=== PATIENT | male | born 1945 | race Caucasian/White ===

== ENCOUNTER → 2017-10-27 | Outpatient (CLI) | payer MEDICARE ==
[~2017-10-27] MED LIST: REGADENOSON 0.4 MG/5 ML SYRINGE ONE
== END | disposition home or self-care (01) ==
LOC: CFH 06:57
PROVIDERS: ATTEND Internal Medicine Cardiovascular Disease
DX: I35.8 Other nonrheumatic aortic valve disorders (principal); I37.1 Nonrheumatic pulmonary valve insufficiency; R94.31 Abnormal electrocardiogram [ECG] [EKG]; E11.9 Type 2 diabetes mellitus without complications
CPT/HCPCS: 0399T; 78452; 93017; 93306; A9502; J2785

== ENCOUNTER 2017-11-07 18:20 | Inpatient (IN) | payer MEDICARE ==
[~2017-11-07] VITALS: Ht 175.3 cm; Wt 92.6 kg
[2017-11-07] MEDS ORDERED: losartan (19:05)
[2017-11-07] MEDS ORDERED: metformin (19:05)
[2017-11-07 19:28] LABS: INTERNATIONAL NORMALIZED RATIO 0.97 (0.93-1.1); PROTHROMBIN TIME 10.1 Seconds (9.6-11.5)
[2017-11-07] MEDS ORDERED: SODIUM CHLORIDE FLUSH 10ML SYR IVF ONE (19:30)
[2017-11-07 19:31] LABS: ALBUMIN 4.1 g/dL (3.4-5.0); ANION GAP 11 mmol/L (5-15); CALCIUM 8.9 mg/dL (8.5-10.1); CHLORIDE 108 mmol/L (98-107); CREATININE 1.14 mg/dL (0.7-1.3)
[2017-11-07 20:20] LABS: MEAN CORPUSCULAR HGB CONC 35.1 g/dL (33.2-36.2); MEAN PLATELET VOLUME 10.4 fL (7.4-10.4); PLATELET COUNT 99 x10^3/uL (130-400); RED BLOOD COUNT 4.36 x10^6/uL (4.38-5.82); RED CELL DISTRIBUTION WIDTH 12.8 % (9.4-14.8)
[2017-11-07] MEDS ORDERED: GADOBUTROL 7.5 MMOL/7.5 ML PFS ONE (20:28)
[2017-11-07 20:29] LABS: BASOPHILS # (AUTO) 0.02 x10^3/uL (0-0.1); BASOPHILS % (AUTO) 0 % (0-1); EOSINOPHILS # (AUTO) 0.23 x10^3/uL (0-0.4); EOSINOPHILS % (AUTO) 4 % (1-7); LYMPHOCYTES # (AUTO) 1.14 x10^3/uL (1-3.4); LYMPHOCYTES % (AUTO) 18 % (22-44); MD SCAN; MONOCYTES # (AUTO) 0.51 x10^3/uL (0.2-0.8); MONOCYTES % (AUTO) 8 % (2-9); NEUTROPHILS # (AUTO) 4.44 x10^3/uL (1.8-6.8); NEUTROPHILS % (AUTO) 70 % (42-75)
[2017-11-07] MEDS ORDERED: ONDANSETRON ODT 4 MG PO PRN (22:00)
[2017-11-07] MEDS ORDERED: ENALAPRILAT 1.25 MG/ML, 2ML IVPush PRN (22:00)
[2017-11-07] MEDS ORDERED: ACETAMINOPHEN 325 MG TABLET PO PRN (22:00)
[2017-11-07] MEDS: BUTALB/APAP/CAFFEINE 50MG/325MG/40MG PO PRN (22:46)
[2017-11-07 22:51] VITALS: BP 128/76
[2017-11-08] MEDS: TRAZODONE 50MG TABLET PO PRN ×2 (00:24→20:40)
[2017-11-08 02:59] VITALS: BP 102/63
[2017-11-08] MEDS: BUTALB/APAP/CAFFEINE 50MG/325MG/40MG PO PRN ×4 (04:14→20:40)
[2017-11-08] MEDS: INSULIN LISPRO 100 UNITS/ML, PEN SQ-INSULIN SCH ×4 (07:00→20:40)
[2017-11-08 08:21] VITALS: BP 137/77
[2017-11-08 13:27] VITALS: BP 130/81
[2017-11-08 20:00] VITALS: BP 111/71
[2017-11-08 21:37] LABS: INTERNATIONAL NORMALIZED RATIO 0.96 (0.93-1.1)
[2017-11-09 04:30] VITALS: BP 132/82
[2017-11-09] MEDS: BUTALB/APAP/CAFFEINE 50MG/325MG/40MG PO PRN ×2 (05:13→09:21)
[2017-11-09 05:35] VITALS: BP 147/91
[2017-11-09 07:08] VITALS: BP 124/78
[2017-11-09] MEDS: INSULIN LISPRO 100 UNITS/ML, PEN SQ-INSULIN SCH ×4 (08:00→20:43)
[2017-11-09] MEDS ORDERED: GADOBUTROL 10 MMOL/10 ML PFS ONE (11:55)
[2017-11-09] MEDS ORDERED: THROMBIN 20,000 UNIT VIAL TP ONE ×2 (12:11→14:28)
[2017-11-09] MEDS ORDERED: BACITRACIN OINT 500U/GM, 15 GM ONE (12:11)
[2017-11-09] MEDS ORDERED: BUPIVACAINE/PF-EPI 0.5% 1:200K ONE (12:11)
[2017-11-09] MEDS ORDERED: BACITRACIN 50,000 UNIT ONE (12:11)
[2017-11-09] MEDS ORDERED: MIDAZOLAM 1 MG/ML, 2ML ONE (12:23)
[2017-11-09] MEDS ORDERED: FENTANYL PF 250 MCG/5ML ONE ×2 (12:23→14:18)
[2017-11-09] MEDS ORDERED: MANNITOL PMX 20% 500 ML ONE (13:28)
[2017-11-09] MEDS ORDERED: LABETALOL 5MG/ML, 20ML IV PRN (14:00)
[2017-11-09] MEDS ORDERED: HYDROmorphone 1 MG/ML, 1ML IV PRN (14:00)
[2017-11-09] MEDS ORDERED: hydrALAzine 20 MG/ML, 1ML IV PRN ×2 (14:00→17:30)
[2017-11-09] MEDS ORDERED: ACETAMINOPHEN 325 MG TABLET PO PRN (14:00)
[2017-11-09] MEDS ORDERED: FENTANYL PF 100 MCG/2ML IV PRN (14:00)
[2017-11-09] MEDS ORDERED: MEPERIDINE/PF 25MG/0.5ML IVPush PRN (14:00)
[2017-11-09] MEDS ORDERED: LORazepam 2 MG/ML, 1ML IVPush PRN (14:00)
[2017-11-09] MEDS ORDERED: OXYcodone 5 MG/5 ML ORAL.SOL UDC PO PRN ×2 (14:00→17:30)
[2017-11-09] MEDS ORDERED: ALBUTEROL SULFATE 2.5 MG/3 ML NPPB PRN (14:00)
[2017-11-09] MEDS ORDERED: BUPIVACAINE/PF-EPI 0.5% 1:200K INFIL ONE (14:27)
[2017-11-09] MEDS ORDERED: BACITRACIN 50,000 UNIT IRRIG ONE (14:29)
[2017-11-09] MEDS ORDERED: PROPOFOL 10 MG/ML, 20ML ONE (14:42)
[2017-11-09] MEDS ORDERED: ROCURONIUM 10MG/ML,5ML ONE (14:42)
[2017-11-09] MEDS ORDERED: NEOSTIGMINE 1 MG/ML, 10ML ONE (14:42)
[2017-11-09] MEDS ORDERED: ONDANSETRON 2MG/ML, 2ML ONE (14:42)
[2017-11-09] MEDS ORDERED: CEFAZOLIN 1,000 MG ONE (14:42)
[2017-11-09] MEDS ORDERED: GLYCOPYRROLATE 0.2MG/1ML, 5ML ONE (14:42)
[2017-11-09] MEDS ORDERED: DEXAMETHASONE 4 MG/ML, 5ML ONE (14:42)
[2017-11-09] MEDS ORDERED: EPHEDRINE 50 MG/ML, 1ML ONE (14:42)
[2017-11-09] MEDS ORDERED: CEFAZOLIN 1,000 MG IV SCH (16:30)
[2017-11-09] MEDS ORDERED: LABETALOL 5MG/ML, 20ML ONE (16:38)
[2017-11-09] MEDS ORDERED: OXYcodone 5 MG/5 ML ORAL.SOL UDC ONE (16:49)
[2017-11-09] MEDS ORDERED: hydrALAzine 20 MG/ML, 1ML ONE (16:49)
[2017-11-09] MEDS ORDERED: FENTANYL PF 100 MCG/2ML ONE (16:49)
[2017-11-09] MEDS: FENTANYL PF 100 MCG/2ML IV PRN ×2 (16:50→17:20)
[2017-11-09] MEDS: MORPHINE SULFATE 4 MG/ML, 1ML IV PRN (17:42)
[2017-11-09] MEDS ORDERED: HYDROmorphone 1 MG/ML, 1ML IM PRN (18:30)
[2017-11-09] MEDS ORDERED: HYDROmorphone 2 MG/ML, 1ML ONE (18:31)
[2017-11-09] MEDS: HYDROmorphone 2 MG/ML, 1ML IVPush PRN ×4 (18:34→22:24)
[2017-11-09] MEDS: CEFAZOLIN PMX 1GM/50ML 50 ML IV SCH (20:34)
[2017-11-09] MEDS ORDERED: BISACODYL 10 MG SUPP PR PRN (22:00)
[2017-11-09] MEDS ORDERED: POLYETHYLENE GLYCOL 17 GM PACKET PO PRN (22:00)
[2017-11-09] MEDS ORDERED: DOCUSATE 100 MG CAPSULE PO PRN (22:00)
[2017-11-10] MEDS: HYDROmorphone 2 MG/ML, 1ML IVPush PRN ×6 (00:01→16:49)
[2017-11-10] MEDS: ONDANSETRON ODT 4 MG PO PRN ×2 (03:58→11:48)
[2017-11-10 04:16] LABS: BASOPHILS # (AUTO) 0.01 x10^3/uL (0-0.1); BASOPHILS % (AUTO) 0 % (0-1); EOSINOPHILS % (AUTO) 0 % (1-7); LYMPHOCYTES # (AUTO) 0.63 x10^3/uL (1-3.4); LYMPHOCYTES % (AUTO) 5 % (22-44); MD NO; MEAN CORPUSCULAR HEMOGLOBIN 33.2 pg (27.5-34.5); MEAN CORPUSCULAR HGB CONC 34.3 g/dL (33.2-36.2); MEAN CORPUSCULAR VOLUME 97.1 fL (81-97); MEAN PLATELET VOLUME 9.3 fL (7.4-10.4); MONOCYTES # (AUTO) 1.01 x10^3/uL (0.2-0.8); MONOCYTES % (AUTO) 8 % (2-9); NEUTROPHILS # (AUTO) 10.78 x10^3/uL (1.8-6.8); NEUTROPHILS % (AUTO) 87 % (42-75); PLATELET COUNT 101 x10^3/uL (130-400); RED BLOOD COUNT 3.94 x10^6/uL (4.38-5.82); RED CELL DISTRIBUTION WIDTH 12.5 % (9.4-14.8)
[2017-11-10 04:21] LABS: ANION GAP 9 mmol/L (5-15); CALCIUM 8.3 mg/dL (8.5-10.1); CHLORIDE 104 mmol/L (98-107); CREATININE 1.01 mg/dL (0.7-1.3)
[2017-11-10] MEDS: CEFAZOLIN PMX 1GM/50ML 50 ML IV SCH ×3 (04:52→21:10)
[2017-11-10] MEDS: PROMETHAZINE 25 MG/ML, 1ML IM PRN ×3 (08:27→22:19)
[2017-11-10] MEDS: INSULIN LISPRO 100 UNITS/ML, PEN SQ-INSULIN SCH ×4 (08:40→21:11)
[2017-11-10] MEDS: OXYcodone/APAP 5/325MG TABLET PO PRN ×2 (21:43)
[2017-11-10] MEDS ORDERED: ACETAMINOPHEN 650 MG SUPP PR PRN (23:00)
[2017-11-10] MEDS ORDERED: ONDANSETRON 2MG/ML, 2ML IVPush PRN (23:30)
[2017-11-11] MEDS: CEFAZOLIN PMX 1GM/50ML 50 ML IV SCH (04:39)
[2017-11-11] MEDS: OXYcodone/APAP 5/325MG TABLET PO PRN ×2 (04:39→12:33)
[2017-11-11 04:45] LABS: MEAN CORPUSCULAR HEMOGLOBIN 33.9 pg (27.5-34.5); MEAN CORPUSCULAR HGB CONC 34.6 g/dL (33.2-36.2); MEAN CORPUSCULAR VOLUME 97.9 fL (81-97); RED BLOOD COUNT 3.66 x10^6/uL (4.38-5.82); RED CELL DISTRIBUTION WIDTH 12.6 % (9.4-14.8)
[2017-11-11 04:48] LABS: ANION GAP 9 mmol/L (5-15); CALCIUM 8.5 mg/dL (8.5-10.1); CHLORIDE 101 mmol/L (98-107); CREATININE 0.87 mg/dL (0.7-1.3)
[2017-11-11 05:02] LABS: BASOPHILS # (AUTO) 0.01 x10^3/uL (0-0.1); BASOPHILS % (AUTO) 0 % (0-1); EOSINOPHILS % (AUTO) 0 % (1-7); LYMPHOCYTES # (AUTO) 0.64 x10^3/uL (1-3.4); LYMPHOCYTES % (AUTO) 5 % (22-44); MD SCAN; MEAN PLATELET VOLUME 9.1 fL (7.4-10.4); MONOCYTES # (AUTO) 1.23 x10^3/uL (0.2-0.8); MONOCYTES % (AUTO) 10 % (2-9); NEUTROPHILS # (AUTO) 10.51 x10^3/uL (1.8-6.8); NEUTROPHILS % (AUTO) 85 % (42-75); PLATELET COUNT 111 x10^3/uL (130-400)
[2017-11-11] MEDS: INSULIN LISPRO 100 UNITS/ML, PEN SQ-INSULIN SCH ×4 (05:09→21:33)
[2017-11-11] MEDS: ONDANSETRON ODT 4 MG PO PRN (05:35)
[2017-11-11] MEDS: D5%-0.9% NACL+KCL 20MEQ 1,000 ML IV SCH ×2 (08:25→17:23)
[2017-11-11] MEDS: KETOROLAC 30 MG/1 ML IVPush SCH ×3 (08:25→21:26)
[2017-11-11] MEDS ORDERED: DIGOXIN 0.25 MG/ML, 2ML ONE (09:14)
[2017-11-11] MEDS ORDERED: AMIODARONE 150 MG in DEXTROSE 5% 100 ML IV ONE (09:30)
[2017-11-11] MEDS ORDERED: FILTER 0.22 MICRON IV ONE (09:30)
[2017-11-11] MEDS ORDERED: AMIODARONE 900 MG in DEXTROSE 5% 482 ML IV PRN (09:30)
[2017-11-11] MEDS ORDERED: DIGOXIN 0.25 MG/ML, 2ML IVPush ONE (09:30)
[2017-11-11] MEDS: BACITRACIN OINT 500U/GM, 15 GM TP SCH ×2 (18:01→21:25)
[2017-11-11] MEDS: MORPHINE SULFATE 4 MG/ML, 1ML IV PRN (19:55)
[2017-11-12] MEDS: BUTALB/APAP/CAFFEINE 50MG/325MG/40MG PO PRN ×5 (01:37→21:54)
[2017-11-12] MEDS: D5%-0.9% NACL+KCL 20MEQ 1,000 ML IV SCH (02:43)
[2017-11-12] MEDS: KETOROLAC 30 MG/1 ML IVPush SCH (02:43)
[2017-11-12 04:18] LABS: ALANINE AMINOTRANSFERASE 25 U/L (12-78); ALBUMIN 2.6 g/dL (3.4-5.0); ANION GAP 8 mmol/L (5-15); CALCIUM 7.8 mg/dL (8.5-10.1); CHLORIDE 109 mmol/L (98-107)
[2017-11-12 04:20] LABS: ALKALINE PHOSPHATASE 42 U/L (45-117); BILIRUBIN,TOTAL 0.6 mg/dL (0.2-1.0); TOTAL PROTEIN 5.7 g/dL (6.4-8.2)
[2017-11-12 04:39] LABS: BASOPHILS # (AUTO) 0.01 x10^3/uL (0-0.1); BASOPHILS % (AUTO) 0 % (0-1); EOSINOPHILS # (AUTO) 0.03 x10^3/uL (0-0.4); EOSINOPHILS % (AUTO) 0 % (1-7); LYMPHOCYTES # (AUTO) 0.53 x10^3/uL (1-3.4); LYMPHOCYTES % (AUTO) 7 % (22-44); MD SCAN; MEAN CORPUSCULAR HEMOGLOBIN 33.8 pg (27.5-34.5); MEAN CORPUSCULAR HGB CONC 34.2 g/dL (33.2-36.2); MEAN CORPUSCULAR VOLUME 98.8 fL (81-97); MONOCYTES # (AUTO) 0.56 x10^3/uL (0.2-0.8); MONOCYTES % (AUTO) 7 % (2-9); NEUTROPHILS # (AUTO) 6.47 x10^3/uL (1.8-6.8); NEUTROPHILS % (AUTO) 85 % (42-75); PLATELET COUNT 68 x10^3/uL (130-400); RED BLOOD COUNT 2.95 x10^6/uL (4.38-5.82); RED CELL DISTRIBUTION WIDTH 12.4 % (9.4-14.8)
[2017-11-12] MEDS ORDERED: SODIUM PHOSPHATE 20 MMOL in SODIUM CHLORIDE 0.9% 500 ML IV ONE (07:30)
[2017-11-12] MEDS: INSULIN LISPRO 100 UNITS/ML, PEN SQ-INSULIN SCH ×4 (08:08→20:11)
[2017-11-12] MEDS: SODIUM CHLORIDE 0.9% 1,000 ML IV SCH (08:10)
[2017-11-12] MEDS: BACITRACIN OINT 500U/GM, 15 GM TP SCH ×2 (09:24→20:11)
[2017-11-12] MEDS: DEXAMETHASONE 4 MG/ML, 1ML IVPush SCH ×3 (10:33→23:34)
[2017-11-12] MEDS: ONDANSETRON ODT 4 MG PO PRN (13:38)
[2017-11-12] MEDS ORDERED: ONDANSETRON ODT 4 MG PO PRN (14:00)
[2017-11-12] MEDS: metFORMIN 500 MG TABLET PO SCH (16:50)
[2017-11-12] MEDS: TRAZODONE 50MG TABLET PO PRN (20:11)
[2017-11-13] MEDS: SODIUM CHLORIDE 0.9% 1,000 ML IV SCH (04:30)
[2017-11-13] MEDS: DEXAMETHASONE 4 MG/ML, 1ML IVPush SCH ×4 (05:00→22:33)
[2017-11-13] MEDS: INSULIN LISPRO 100 UNITS/ML, PEN SQ-INSULIN SCH ×4 (06:52→20:38)
[2017-11-13] MEDS: BUTALB/APAP/CAFFEINE 50MG/325MG/40MG PO PRN ×2 (09:13→12:49)
[2017-11-13] MEDS: metFORMIN 500 MG TABLET PO SCH ×2 (09:13→16:24)
[2017-11-13] MEDS: AMIODARONE 200 MG TABLET PO SCH ×2 (09:16→20:26)
[2017-11-13] MEDS: BACITRACIN OINT 500U/GM, 15 GM TP SCH ×2 (09:16→20:26)
[2017-11-13] MEDS: MORPHINE SULFATE 4 MG/ML, 1ML IV PRN (14:08)
[2017-11-13 15:55] VITALS: BP 104/66
[2017-11-13 20:23] VITALS: BP 136/73
[2017-11-13] MEDS ORDERED: CIMETIDINE 200 MG TABLET PO ONE (21:30)
[2017-11-14] MEDS: OXYcodone/APAP 5/325MG TABLET PO PRN ×4 (00:37→20:43)
[2017-11-14] MEDS: TRAZODONE 50MG TABLET PO PRN ×2 (01:52→22:58)
[2017-11-14 02:00] VITALS: BP 128/75
[2017-11-14] MEDS: DEXAMETHASONE 4 MG/ML, 1ML IVPush SCH ×4 (04:29→22:50)
[2017-11-14 06:49] VITALS: BP 134/101
[2017-11-14] MEDS: INSULIN LISPRO 100 UNITS/ML, PEN SQ-INSULIN SCH ×4 (08:43→20:46)
[2017-11-14] MEDS: metFORMIN 500 MG TABLET PO SCH ×2 (08:44→17:13)
[2017-11-14] MEDS: BACITRACIN OINT 500U/GM, 15 GM TP SCH ×2 (08:44→20:46)
[2017-11-14] MEDS: AMIODARONE 200 MG TABLET PO SCH ×2 (08:44→20:44)
[2017-11-14] MEDS: BUTALB/APAP/CAFFEINE 50MG/325MG/40MG PO PRN (08:51)
[2017-11-14 12:45] VITALS: BP 121/70
[2017-11-14 18:49] VITALS: BP 125/71
[2017-11-14] MEDS ORDERED: DIPHENHYDRAMINE 50 MG CAPSULE PO ONE (22:00)
[2017-11-15 01:32] VITALS: BP 130/70
[2017-11-15] MEDS: OXYcodone/APAP 5/325MG TABLET PO PRN ×4 (01:40→20:26)
[2017-11-15] MEDS: DEXAMETHASONE 4 MG/ML, 1ML IVPush SCH ×2 (04:47→10:30)
[2017-11-15 05:12] LABS: BASOPHILS # (AUTO) 0.02 x10^3/uL (0-0.1); BASOPHILS % (AUTO) 0 % (0-1); EOSINOPHILS # (AUTO) 0.01 x10^3/uL (0-0.4); EOSINOPHILS % (AUTO) 0 % (1-7); LYMPHOCYTES # (AUTO) 0.78 x10^3/uL (1-3.4); LYMPHOCYTES % (AUTO) 10 % (22-44); MD NO; MEAN CORPUSCULAR HEMOGLOBIN 34.2 pg (27.5-34.5); MEAN CORPUSCULAR HGB CONC 34.9 g/dL (33.2-36.2); MEAN PLATELET VOLUME 9.2 fL (7.4-10.4); MONOCYTES # (AUTO) 0.49 x10^3/uL (0.2-0.8); MONOCYTES % (AUTO) 6 % (2-9); NEUTROPHILS % (AUTO) 83 % (42-75); PLATELET COUNT 116 x10^3/uL (130-400); RED BLOOD COUNT 2.91 x10^6/uL (4.38-5.82); RED CELL DISTRIBUTION WIDTH 12.5 % (9.4-14.8)
[2017-11-15 05:25] LABS: ANION GAP 10 mmol/L (5-15); CALCIUM 8.2 mg/dL (8.5-10.1); CHLORIDE 109 mmol/L (98-107); CREATININE 0.85 mg/dL (0.7-1.3)
[2017-11-15 07:38] VITALS: BP 135/77
[2017-11-15] MEDS: BACITRACIN OINT 500U/GM, 15 GM TP SCH ×2 (08:26→20:50)
[2017-11-15] MEDS: metFORMIN 500 MG TABLET PO SCH ×2 (08:26→16:33)
[2017-11-15] MEDS: AMIODARONE 200 MG TABLET PO SCH ×2 (08:26→20:50)
[2017-11-15] MEDS: INSULIN LISPRO 100 UNITS/ML, PEN SQ-INSULIN SCH ×4 (08:27→20:38)
[2017-11-15 13:28] VITALS: BP 108/66
[2017-11-15] MEDS: BUTALB/APAP/CAFFEINE 50MG/325MG/40MG PO PRN (16:33)
[2017-11-15 18:50] VITALS: BP 124/72
[2017-11-15] MEDS: TRAZODONE 50MG TABLET PO PRN (20:50)
[2017-11-16 01:30] VITALS: BP 103/54
[2017-11-16] MEDS: OXYcodone/APAP 5/325MG TABLET PO PRN ×3 (02:53→12:32)
[2017-11-16 06:58] VITALS: BP 126/74
[2017-11-16] MEDS: INSULIN LISPRO 100 UNITS/ML, PEN SQ-INSULIN SCH ×2 (07:00→11:00)
[2017-11-16] MEDS: metFORMIN 500 MG TABLET PO SCH (07:52)
[2017-11-16] MEDS: BACITRACIN OINT 500U/GM, 15 GM TP SCH (07:52)
[2017-11-16] MEDS: AMIODARONE 200 MG TABLET PO SCH (07:52)
[2017-11-16] MEDS ORDERED: OXYC-302 PO (13:29)
== END 2017-11-16 13:41 | disposition home health service (06) | DRG 25 ==
LOC: ED 21:17 → EDIP 21:18 → 4NOR 22:20 → CCU 11-09 17:27 → 5SO 11-13 11:06 → DCLOUNGE 11-16 13:27
PROVIDERS: ADMIT Internal Medicine; ATTEND Internal Medicine
PROC: 00U20KZ Supplement Dura Mater with Nonautologous Tissue Substitute, Open Approach (ICD-10-PCS; 2017-11-09)
PROC: [UNRECOGNIZED PROCEDURE] (2017-11-09)
PROC: 00C40ZZ Extirpation of Matter from Intracranial Subdural Space, Open Approach (ICD-10-PCS; principal; 2017-11-09 13:00)
DX: I62.00 Nontraumatic subdural hemorrhage, unspecified (principal); G93.41 Metabolic encephalopathy; I62.1 Nontraumatic extradural hemorrhage; D69.6 Thrombocytopenia, unspecified; E11.9 Type 2 diabetes mellitus without complications; F17.210 Nicotine dependence, cigarettes, uncomplicated; G44.52 New daily persistent headache (NDPH); I11.9 Hypertensive heart disease without heart failure; K57.30 Diverticulosis of large intestine without perforation or abscess without bleeding; I48.91 Unspecified atrial fibrillation; Z82.3 Family history of stroke; Z82.49 Family history of ischemic heart disease and other diseases of the circulatory system; Z83.3 Family history of diabetes mellitus
CPT/HCPCS: 36415; 70250; 70450; 70552; 70553; 71045; 80048; 80053; 82040; 82962; 83036; 83735; 84100; 85025; 85610; 85730; 86850; 86900; 87081; 88305; 88307; 93005; 99285; A9585; C1713; G0378; J0690; J1100; J1170; J1885; J2250; J2405; J2550; J2704; J2710; J3010; J3490; Q0162; C1781; J0282; J1160; J1815; J3480; J7030; J7040; J7060

== ENCOUNTER → 2017-11-07 | Outpatient (CLI) | payer MEDICARE ==
[~2017-11-07] MED LIST changes: +OXYC-302 PO; -REGADENOSON 0.4 MG/5 ML SYRINGE ONE; +losartan; +metformin
== END | disposition home or self-care (01) ==
LOC: RAD 17:42
PROVIDERS: ATTEND Nurse Practitioner Family
DX: R26.89 Other abnormalities of gait and mobility (principal); G44.89 Other headache syndrome; R41.3 Other amnesia
CPT/HCPCS: 70450

== ENCOUNTER 2017-11-22 11:02 | Inpatient (IN) | payer MEDICARE ==
[~2017-11-22] VITALS: Ht 175.3 cm; Wt 80.4 kg
[2017-11-22] MEDS ORDERED: MORPHINE SULFATE 4 MG/ML, 1ML IVPush PRN (11:30)
[2017-11-22] MEDS ORDERED: LOSA25TA6 PO (11:51)
[2017-11-22] MEDS ORDERED: METF500T17 PO (11:52)
[2017-11-22] MEDS ORDERED: FLUO40CA9 PO (11:53)
[2017-11-22 11:54] LABS: BASOPHILS # (AUTO) 0.02 x10^3/uL (0-0.1); BASOPHILS % (AUTO) 0 % (0-1); EOSINOPHILS % (AUTO) 2 % (1-7); LYMPHOCYTES # (AUTO) 0.96 x10^3/uL (1-3.4); LYMPHOCYTES % (AUTO) 11 % (22-44); MD NO; MEAN CORPUSCULAR HEMOGLOBIN 32.5 pg (27.5-34.5); MEAN CORPUSCULAR HGB CONC 33.7 g/dL (33.2-36.2); MEAN CORPUSCULAR VOLUME 96.5 fL (81-97); MEAN PLATELET VOLUME 8.1 fL (7.4-10.4); MONOCYTES # (AUTO) 0.52 x10^3/uL (0.2-0.8); MONOCYTES % (AUTO) 6 % (2-9); NEUTROPHILS # (AUTO) 6.67 x10^3/uL (1.8-6.8); NEUTROPHILS % (AUTO) 80 % (42-75); PLATELET COUNT 237 x10^3/uL (130-400); RED BLOOD COUNT 3.58 x10^6/uL (4.38-5.82); RED CELL DISTRIBUTION WIDTH 13.5 % (9.4-14.8)
[2017-11-22] MEDS ORDERED: OXYC-302 PO (11:54)
[2017-11-22 12:06] LABS: INTERNATIONAL NORMALIZED RATIO 0.97 (0.93-1.1)
[2017-11-22 12:07] LABS: ALBUMIN 3.3 g/dL (3.4-5.0); ANION GAP 7 mmol/L (5-15); CALCIUM 8.7 mg/dL (8.5-10.1); CHLORIDE 105 mmol/L (98-107)
[2017-11-22 12:11] LABS: ALANINE AMINOTRANSFERASE 40 U/L (12-78); ALKALINE PHOSPHATASE 66 U/L (45-117); BILIRUBIN,TOTAL 0.3 mg/dL (0.2-1.0); CREATININE 0.88 mg/dL (0.7-1.3)
[2017-11-22] MEDS ORDERED: ONDANSETRON ODT 4 MG ONE (12:30)
[2017-11-22] MEDS ORDERED: MORPHINE SULFATE 4 MG/ML, 1ML ONE ×2 (12:30→18:01)
[2017-11-22] MEDS ORDERED: ONDANSETRON 2MG/ML, 2ML IVPush ONE (12:30)
[2017-11-22] MEDS: MORPHINE SULFATE 4 MG/ML, 1ML IVPush PRN ×2 (12:35→13:45)
[2017-11-22] MEDS ORDERED: ONDANSETRON ODT 4 MG PO ONE (13:00)
[2017-11-22 14:44] VITALS: BP 123/75
[2017-11-22] MEDS ORDERED: INSTRUCTION SEE COMMENTS XX ONE (16:00)
[2017-11-22] MEDS ORDERED: ACETAMINOPHEN 325 MG TABLET PO PRN (16:00)
[2017-11-22] MEDS: SODIUM CHLORIDE 0.9% 1,000 ML IV SCH (16:28)
[2017-11-22] MEDS ORDERED: MORPHINE SULFATE 4 MG/ML, 1ML IVPush ONE (18:00)
[2017-11-22] MEDS: morphine SULFATE 10 MG/ML, 1ML IVPush PRN (19:45)
[2017-11-22 20:24] LABS: MICROSCOPIC NOT IND
[2017-11-22 20:33] LABS: CULTURE INDICATED? NO
[2017-11-22] MEDS: INSULIN LISPRO 100 UNITS/ML, PEN SQ-INSULIN SCH (20:57)
[2017-11-22] MEDS: OXYcodone/APAP 5/325MG TABLET PO PRN (22:52)
[2017-11-23] MEDS: morphine SULFATE 10 MG/ML, 1ML IVPush PRN ×2 (02:08→19:43)
[2017-11-23 04:10] VITALS: BP 137/74
[2017-11-23] MEDS: SODIUM CHLORIDE 0.9% 1,000 ML IV SCH ×3 (05:51→23:55)
[2017-11-23] MEDS: OXYcodone/APAP 5/325MG TABLET PO PRN ×4 (06:50→23:07)
[2017-11-23] MEDS: INSULIN LISPRO 100 UNITS/ML, PEN SQ-INSULIN SCH ×4 (07:00→20:46)
[2017-11-23] MEDS: MVI ADULT 10 ML, THIAMINE 200 MG, FOLIC ACID 1 MG in SODIUM CHLORIDE 0.45% 1,000 ML IV SCH (10:26)
[2017-11-23] MEDS ORDERED: FENTANYL PF 250 MCG/5ML ONE (15:35)
[2017-11-23] MEDS ORDERED: PROPOFOL 10 MG/ML, 20ML ONE (15:38)
[2017-11-23] MEDS ORDERED: ROCURONIUM 10MG/ML,5ML ONE (15:39)
[2017-11-23] MEDS ORDERED: SODIUM CHLORIDE 0.9% PF 10ML ONE (15:39)
[2017-11-23] MEDS ORDERED: CEFAZOLIN 1,000 MG ONE ×2 (15:39)
[2017-11-23] MEDS ORDERED: GLYCOPYRROLATE 0.4 MG/2 ML, 2ML ONE (15:41)
[2017-11-23] MEDS ORDERED: NEOSTIGMINE 1 MG/ML, 10ML ONE (15:41)
[2017-11-23] MEDS ORDERED: THROMBIN 5,000 UNIT VIAL TP ONE (16:26)
[2017-11-23] MEDS ORDERED: BUPIVACAINE/PF-EPI 0.5% 1:200K ONE (16:26)
[2017-11-23] MEDS ORDERED: BACITRACIN 50,000 UNIT ONE (16:26)
[2017-11-23] MEDS ORDERED: hydrALAzine 20 MG/ML, 1ML IV PRN (16:30)
[2017-11-23] MEDS ORDERED: MORPHINE SULFATE 4 MG/ML, 1ML IVPush PRN (16:30)
[2017-11-23] MEDS ORDERED: PROMETHAZINE 25 MG/ML, 1ML IV PRN (16:30)
[2017-11-23] MEDS ORDERED: OXYcodone 5 MG/5 ML ORAL.SOL UDC PO PRN (16:30)
[2017-11-23] MEDS ORDERED: ONDANSETRON 2MG/ML, 2ML IV PRN (16:30)
[2017-11-23] MEDS ORDERED: LABETALOL 5MG/ML, 20ML IV PRN (16:30)
[2017-11-23] MEDS ORDERED: HYDROmorphone 1 MG/ML, 1ML IV PRN (16:30)
[2017-11-23] MEDS ORDERED: ONDANSETRON ODT 8 MG PO PRN (16:30)
[2017-11-23] MEDS ORDERED: PROMETHAZINE 25 MG/ML, 1ML IM PRN ×2 (16:30)
[2017-11-23] MEDS ORDERED: MEPERIDINE/PF 25MG/0.5ML IVPush PRN (16:30)
[2017-11-23] MEDS ORDERED: ONDANSETRON 2MG/ML, 2ML ONE (16:55)
[2017-11-23] MEDS ORDERED: PHENYLEPHRINE 10 MG/ML ONE (17:01)
[2017-11-23] MEDS ORDERED: FENTANYL PF 100 MCG/2ML ONE (19:00)
[2017-11-23] MEDS: FENTANYL PF 100 MCG/2ML IV PRN ×2 (19:00→19:15)
[2017-11-23] MEDS ORDERED: hydrALAzine 20 MG/ML, 1ML ONE (19:04)
[2017-11-24] MEDS: CEFAZOLIN PMX 2GM/50ML 50 ML IVPB SCH ×3 (01:40→17:54)
[2017-11-24 04:14] VITALS: BP 109/62
[2017-11-24 05:01] LABS: BASOPHILS # (AUTO) 0.02 x10^3/uL (0-0.1); BASOPHILS % (AUTO) 0 % (0-1); EOSINOPHILS # (AUTO) 0.18 x10^3/uL (0-0.4); EOSINOPHILS % (AUTO) 2 % (1-7); LYMPHOCYTES # (AUTO) 1.12 x10^3/uL (1-3.4); LYMPHOCYTES % (AUTO) 12 % (22-44); MD NO; MEAN CORPUSCULAR HEMOGLOBIN 32.9 pg (27.5-34.5); MEAN CORPUSCULAR HGB CONC 33.7 g/dL (33.2-36.2); MEAN CORPUSCULAR VOLUME 97.7 fL (81-97); MEAN PLATELET VOLUME 8.1 fL (7.4-10.4); MONOCYTES # (AUTO) 0.65 x10^3/uL (0.2-0.8); MONOCYTES % (AUTO) 7 % (2-9); NEUTROPHILS # (AUTO) 7.07 x10^3/uL (1.8-6.8); NEUTROPHILS % (AUTO) 78 % (42-75); PLATELET COUNT 243 x10^3/uL (130-400); RED BLOOD COUNT 3.77 x10^6/uL (4.38-5.82); RED CELL DISTRIBUTION WIDTH 13.5 % (9.4-14.8)
[2017-11-24 05:03] LABS: ALANINE AMINOTRANSFERASE 35 U/L (12-78); ALBUMIN 3.3 g/dL (3.4-5.0); ANION GAP 6 mmol/L (5-15); CALCIUM 8.9 mg/dL (8.5-10.1); CHLORIDE 104 mmol/L (98-107); CREATININE 1.02 mg/dL (0.7-1.3)
[2017-11-24 05:06] LABS: ALKALINE PHOSPHATASE 71 U/L (45-117); BILIRUBIN,TOTAL 0.4 mg/dL (0.2-1.0)
[2017-11-24] MEDS: INSULIN LISPRO 100 UNITS/ML, PEN SQ-INSULIN SCH ×4 (08:34→21:39)
[2017-11-24] MEDS: OXYcodone/APAP 5/325MG TABLET PO PRN ×2 (08:40→12:41)
[2017-11-24] MEDS: MVI ADULT 10 ML, THIAMINE 200 MG, FOLIC ACID 1 MG in SODIUM CHLORIDE 0.45% 1,000 ML IV SCH (12:34)
[2017-11-25] MEDS: OXYcodone/APAP 5/325MG TABLET PO PRN ×4 (00:27→19:46)
[2017-11-25] MEDS: SODIUM CHLORIDE 0.9% 1,000 ML IV SCH ×2 (00:27→21:40)
[2017-11-25] MEDS: CEFAZOLIN PMX 2GM/50ML 50 ML IVPB SCH ×3 (02:01→17:36)
[2017-11-25 04:00] VITALS: BP 125/75
[2017-11-25 04:36] LABS: BASOPHILS # (AUTO) 0.01 x10^3/uL (0-0.1); BASOPHILS % (AUTO) 0 % (0-1); EOSINOPHILS # (AUTO) 0.05 x10^3/uL (0-0.4); EOSINOPHILS % (AUTO) 0 % (1-7); LYMPHOCYTES # (AUTO) 0.86 x10^3/uL (1-3.4); LYMPHOCYTES % (AUTO) 7 % (22-44); MD NO; MEAN CORPUSCULAR HEMOGLOBIN 33.2 pg (27.5-34.5); MEAN CORPUSCULAR HGB CONC 34.1 g/dL (33.2-36.2); MEAN CORPUSCULAR VOLUME 97.2 fL (81-97); MEAN PLATELET VOLUME 8.3 fL (7.4-10.4); MONOCYTES # (AUTO) 0.88 x10^3/uL (0.2-0.8); MONOCYTES % (AUTO) 7 % (2-9); NEUTROPHILS % (AUTO) 85 % (42-75); PLATELET COUNT 207 x10^3/uL (130-400); RED BLOOD COUNT 3.62 x10^6/uL (4.38-5.82); RED CELL DISTRIBUTION WIDTH 12.8 % (9.4-14.8)
[2017-11-25 04:46] LABS: ANION GAP 9 mmol/L (5-15); CALCIUM 8.8 mg/dL (8.5-10.1); CHLORIDE 106 mmol/L (98-107)
[2017-11-25 04:53] LABS: CREATININE 0.81 mg/dL (0.7-1.3)
[2017-11-25] MEDS: INSULIN LISPRO 100 UNITS/ML, PEN SQ-INSULIN SCH ×4 (07:00→21:41)
[2017-11-25] MEDS: MVI ADULT 10 ML, THIAMINE 200 MG, FOLIC ACID 1 MG in SODIUM CHLORIDE 0.45% 1,000 ML IV SCH (09:08)
[2017-11-26] MEDS: CEFAZOLIN PMX 2GM/50ML 50 ML IVPB SCH (01:27)
[2017-11-26] MEDS: SODIUM CHLORIDE 0.9% 1,000 ML IV SCH (02:19)
[2017-11-26 04:00] VITALS: BP 140/72
[2017-11-26 04:54] LABS: ANION GAP 7 mmol/L (5-15); CALCIUM 8.4 mg/dL (8.5-10.1); CHLORIDE 107 mmol/L (98-107)
[2017-11-26 04:56] LABS: CREATININE 0.85 mg/dL (0.7-1.3)
[2017-11-26 04:58] LABS: BASOPHILS # (AUTO) 0.02 x10^3/uL (0-0.1); BASOPHILS % (AUTO) 0 % (0-1); EOSINOPHILS % (AUTO) 3 % (1-7); LYMPHOCYTES # (AUTO) 0.92 x10^3/uL (1-3.4); LYMPHOCYTES % (AUTO) 12 % (22-44); MD NO; MEAN CORPUSCULAR HEMOGLOBIN 33.3 pg (27.5-34.5); MEAN CORPUSCULAR HGB CONC 34.1 g/dL (33.2-36.2); MEAN CORPUSCULAR VOLUME 97.7 fL (81-97); MEAN PLATELET VOLUME 8.4 fL (7.4-10.4); MONOCYTES # (AUTO) 0.59 x10^3/uL (0.2-0.8); MONOCYTES % (AUTO) 8 % (2-9); NEUTROPHILS # (AUTO) 5.91 x10^3/uL (1.8-6.8); NEUTROPHILS % (AUTO) 77 % (42-75); PLATELET COUNT 193 x10^3/uL (130-400); RED BLOOD COUNT 3.43 x10^6/uL (4.38-5.82); RED CELL DISTRIBUTION WIDTH 13.1 % (9.4-14.8)
[2017-11-26] MEDS: OXYcodone/APAP 5/325MG TABLET PO PRN ×4 (06:06→20:59)
[2017-11-26] MEDS: INSULIN LISPRO 100 UNITS/ML, PEN SQ-INSULIN SCH ×4 (07:00→21:09)
[2017-11-26] MEDS: MVI ADULT 10 ML, THIAMINE 200 MG, FOLIC ACID 1 MG in SODIUM CHLORIDE 0.45% 1,000 ML IV SCH (09:00)
[2017-11-26] MEDS ORDERED: BACITRACIN OINT 500U/GM, 15 GM TP ONE (09:00)
[2017-11-26] MEDS: DOCUSATE 100 MG CAPSULE PO SCH ×2 (09:12→20:59)
[2017-11-26 12:48] VITALS: BP 142/82
[2017-11-26 18:50] VITALS: BP 129/73
[2017-11-27] MEDS: OXYcodone/APAP 5/325MG TABLET PO PRN ×4 (03:00→19:48)
[2017-11-27 03:15] VITALS: BP 149/81
[2017-11-27] MEDS: INSULIN LISPRO 100 UNITS/ML, PEN SQ-INSULIN SCH ×4 (06:42→20:07)
[2017-11-27 07:31] VITALS: BP 125/80
[2017-11-27] MEDS: FOLIC ACID 1 MG TABLET PO SCH (09:34)
[2017-11-27] MEDS: DOCUSATE 100 MG CAPSULE PO SCH ×2 (09:34→19:48)
[2017-11-27] MEDS: THIAMINE 100MG TABLET PO SCH (09:34)
[2017-11-27 13:28] VITALS: BP 134/75
[2017-11-27 19:05] VITALS: BP 121/69
[2017-11-28 01:14] VITALS: BP 132/73
[2017-11-28] MEDS: OXYcodone/APAP 5/325MG TABLET PO PRN ×4 (04:55→20:08)
[2017-11-28 06:56] VITALS: BP 124/79
[2017-11-28] MEDS: INSULIN LISPRO 100 UNITS/ML, PEN SQ-INSULIN SCH ×4 (07:00→20:18)
[2017-11-28] MEDS: LOSARTAN 25MG TABLET PO SCH (08:40)
[2017-11-28] MEDS: DOCUSATE 100 MG CAPSULE PO SCH ×2 (08:40→20:08)
[2017-11-28] MEDS: THIAMINE 100MG TABLET PO SCH (08:41)
[2017-11-28] MEDS: FOLIC ACID 1 MG TABLET PO SCH (08:41)
[2017-11-28] MEDS ORDERED: MAGNESIUM CITRATE 300ML ORAL SOL PO ONE (10:00)
[2017-11-28 13:01] VITALS: BP 122/78
[2017-11-28 20:02] VITALS: BP 128/68
[2017-11-29] MEDS: OXYcodone/APAP 5/325MG TABLET PO PRN ×5 (00:26→21:44)
[2017-11-29 02:10] VITALS: BP 114/73
[2017-11-29] MEDS: INSULIN LISPRO 100 UNITS/ML, PEN SQ-INSULIN SCH ×4 (06:58→20:28)
[2017-11-29 07:11] VITALS: BP 137/77
[2017-11-29] MEDS: DOCUSATE 100 MG CAPSULE PO SCH ×2 (09:18→21:44)
[2017-11-29] MEDS: THIAMINE 100MG TABLET PO SCH (09:18)
[2017-11-29] MEDS: FOLIC ACID 1 MG TABLET PO SCH (09:19)
[2017-11-29] MEDS: LOSARTAN 25MG TABLET PO SCH (09:19)
[2017-11-29 12:54] VITALS: BP 119/74
[2017-11-29 19:20] VITALS: BP 122/71
[2017-11-30] MEDS: OXYcodone/APAP 5/325MG TABLET PO PRN ×5 (03:45→22:30)
[2017-11-30 04:17] VITALS: BP 149/87
[2017-11-30] MEDS: INSULIN LISPRO 100 UNITS/ML, PEN SQ-INSULIN SCH ×4 (07:00→21:00)
[2017-11-30 07:49] VITALS: BP 132/72
[2017-11-30] MEDS: THIAMINE 100MG TABLET PO SCH (08:09)
[2017-11-30] MEDS: LOSARTAN 25MG TABLET PO SCH (08:09)
[2017-11-30] MEDS: DOCUSATE 100 MG CAPSULE PO SCH ×2 (08:09→21:11)
[2017-11-30] MEDS: FOLIC ACID 1 MG TABLET PO SCH (08:18)
[2017-11-30 14:16] VITALS: BP 128/75
[2017-11-30 20:09] VITALS: BP 134/74
[2017-12-01 04:23] VITALS: BP 154/87
[2017-12-01] MEDS: OXYcodone/APAP 5/325MG TABLET PO PRN ×4 (05:02→21:09)
[2017-12-01] MEDS: INSULIN LISPRO 100 UNITS/ML, PEN SQ-INSULIN SCH ×4 (07:00→21:11)
[2017-12-01 08:25] VITALS: BP 155/98
[2017-12-01] MEDS: LOSARTAN 25MG TABLET PO SCH (08:27)
[2017-12-01] MEDS: DOCUSATE 100 MG CAPSULE PO SCH ×2 (08:27→21:09)
[2017-12-01] MEDS: FOLIC ACID 1 MG TABLET PO SCH (08:27)
[2017-12-01] MEDS: THIAMINE 100MG TABLET PO SCH (08:27)
[2017-12-01 11:27] VITALS: BP 134/82
[2017-12-01 15:59] VITALS: BP 139/91
[2017-12-01 18:33] VITALS: BP 116/76
[2017-12-02 04:07] VITALS: BP 122/84
[2017-12-02] MEDS: OXYcodone/APAP 5/325MG TABLET PO PRN ×4 (05:06→16:37)
[2017-12-02 05:18] LABS: ALBUMIN 3.5 g/dL (3.4-5.0); ANION GAP 5 mmol/L (5-15); CALCIUM 9.1 mg/dL (8.5-10.1); CHLORIDE 105 mmol/L (98-107)
[2017-12-02 05:19] LABS: BASOPHILS # (AUTO) 0.02 x10^3/uL (0-0.1); BASOPHILS % (AUTO) 0 % (0-1); EOSINOPHILS # (AUTO) 0.31 x10^3/uL (0-0.4); EOSINOPHILS % (AUTO) 5 % (1-7); LYMPHOCYTES # (AUTO) 1.41 x10^3/uL (1-3.4); LYMPHOCYTES % (AUTO) 24 % (22-44); MD NO; MEAN CORPUSCULAR HEMOGLOBIN 31.8 pg (27.5-34.5); MEAN CORPUSCULAR HGB CONC 33.5 g/dL (33.2-36.2); MEAN CORPUSCULAR VOLUME 94.9 fL (81-97); MEAN PLATELET VOLUME 8.5 fL (7.4-10.4); MONOCYTES # (AUTO) 0.48 x10^3/uL (0.2-0.8); MONOCYTES % (AUTO) 8 % (2-9); NEUTROPHILS # (AUTO) 3.63 x10^3/uL (1.8-6.8); NEUTROPHILS % (AUTO) 62 % (42-75); PLATELET COUNT 180 x10^3/uL (130-400); RED BLOOD COUNT 3.91 x10^6/uL (4.38-5.82)
[2017-12-02 05:21] LABS: ALANINE AMINOTRANSFERASE 31 U/L (12-78); ALKALINE PHOSPHATASE 83 U/L (45-117); BILIRUBIN,TOTAL 0.3 mg/dL (0.2-1.0); CREATININE 1.01 mg/dL (0.7-1.3); TOTAL PROTEIN 7.8 g/dL (6.4-8.2)
[2017-12-02 07:00] VITALS: BP 139/83
[2017-12-02] MEDS: INSULIN LISPRO 100 UNITS/ML, PEN SQ-INSULIN SCH ×3 (07:00→16:00)
[2017-12-02] MEDS: LOSARTAN 25MG TABLET PO SCH (08:37)
[2017-12-02] MEDS: DOCUSATE 100 MG CAPSULE PO SCH (08:37)
[2017-12-02] MEDS: THIAMINE 100MG TABLET PO SCH (08:38)
[2017-12-02] MEDS: FOLIC ACID 1 MG TABLET PO SCH (08:38)
[2017-12-02] MEDS ORDERED: THIA100T10 PO (10:10)
[2017-12-02 11:36] VITALS: BP 112/73
[2017-12-02 13:42] VITALS: BP 123/82
[2017-12-02 16:33] VITALS: BP 126/72
== END 2017-12-02 16:47 | DRG 25 ==
LOC: ED 13:16 → EDIP 13:30 → CCU 14:18 → 4NOR 11-26 12:40
PROVIDERS: ADMIT Hospitalist; ATTEND Hospitalist
PROC: 009400Z Drainage of Intracranial Subdural Space with Drainage Device, Open Approach (ICD-10-PCS; 2017-11-23)
PROC: 00C40ZZ Extirpation of Matter from Intracranial Subdural Space, Open Approach (ICD-10-PCS; principal; 2017-11-23 13:00)
DX: I62.02 Nontraumatic subacute subdural hemorrhage (principal); G93.6 Cerebral edema; D68.69 Other thrombophilia; R71.0 Precipitous drop in hematocrit; E11.9 Type 2 diabetes mellitus without complications; I48.91 Unspecified atrial fibrillation; I10 Essential (primary) hypertension; F12.10 Cannabis abuse, uncomplicated; Z83.3 Family history of diabetes mellitus; Z82.49 Family history of ischemic heart disease and other diseases of the circulatory system; Z79.899 Other long term (current) drug therapy; Z79.84 Long term (current) use of oral hypoglycemic drugs
CPT/HCPCS: 36415; 70450; 80048; 80053; 81003; 82962; 83735; 84100; 85025; 85610; 85730; 86850; 86900; 87081; 93005; 96374; 96376; 99285; C1713; G0378; J0690; J2270; J2405; J2704; J2710; J3010; J3411; Q0162; 92523-GN; C1781; J0360; J1815; J2370; J7030